=== PATIENT | male | born 1970 | race Caucasian/White ===

== ENCOUNTER 2018-12-29 08:11 | Observation (INO) | payer OTHER ==
[~2018-12-29] VITALS: Ht 182.9 cm; Wt 90.5 kg
[2018-12-29] VITALS (23 sets, daily range): BP systolic 108–135; BP diastolic 55–88; PULSE 54–92; RESP 11–25; Ht 182.9 cm; Wt 90.5 kg
[~2018-12-29 08:11] MED LIST: BUPIVACAINE 0.5%/EPI (SDV) 30 ML INJ ONE; POLYMYXIN/BACITRACIN 1L IRRIG ONE; SURGIFOAM POWDER 1 GM KIT ONE; THROMBIN (BOVINE) 5,000 UNIT VIAL TP ONE
[2018-12-29] MEDS ORDERED: CEFAZOLIN 2 GM/50 ML (PMX) 50 ML IVPB SCH (08:30)
[2018-12-29] MEDS ORDERED: LACTATED RINGER'S 1,000 ML (ENTER RATE) IV* ONE (08:30)
--- NOTE | 2018-12-29 12:00 | HPN ---
Date/Time of Note Date/Time of Note DATE: 12/29/18 TIME: 12:00 Interval H&P Admission Note Pt. seen H&P reviewed: No system changes CORNEL GARCÍA MD Dec 29, 2018 12:00
--- NOTE | 2018-12-29 12:26 | PREAC ---
Date/Time of Note Date/Time of Note DATE: 12/29/18 TIME: 12:25 Anesthesia Eval and Record Evaluation Time Pre-Procedure Interview DATE: 12/29/18 TIME: 12:25 Age 48 Sex male NPO: 8 hrs Preoperative diagnosis lumbar herniated disc Planned procedure L4-L5 microdiscectomy on left Past Medical History Past Medical History: None Surgery & Anesthesia Issues No known issue Meds Anticoagulation: No Beta Lew within 24 hr: No Reason Beta Lew not given: Pt. not on B-Lew No Active Prescriptions or Reported Meds Current Medications Cefazolin Sodium/ Dextrose 50 ml @ 100 mls/hr PREOP IVPB ; Start 12/29/18 at 08:30; Stop 12/29/18 at 19:00 Potassium Chloride/Dextrose/ Sod Cl 1,000 ml @ 100 mls/hr Q10H IV ; Start 12/29/18 at 12:06; Status UNV Acetaminophen/ Hydrocodone Bitart ([place] (10/325)) 1 tab Q4H PRN PO .PAIN 1-5; Start 12/29/18 at 12:30; Status UNV Acetaminophen/ Hydrocodone Bitart ([place] (10/325)) 2 tab Q4H PRN PO .PAIN 6-10; Start 12/29/18 at 12:30; Status UNV Hydromorphone HCl (Dilaudid) 0.2 mg Q1H PRN IV .BREAKTHROUGH PAIN; Start 12/29/18 at 12:30; Status UNV Cefazolin Sodium 50 ml @ 100 mls/hr Q8H IVPB ; Start 12/29/18 at 12:30; Stop 12/30/18 at 04:59; Status UNV Ondansetron HCl (Zofran Inj) 4 mg Q6H PRN IV NAUSEA/VOMITING; Start 12/29/18 at 12:30; Status UNV Bisacodyl (Dulcolax Supp) 10 mg DAILY PRN [place] .CONSTIPATION; Start 12/29/18 at 12:30; Status UNV Docusate Sodium (Colace) 100 mg BID PO ; Start 12/29/18 at 21:00; Status UNV Al Hydrox/Mg Hydrox/Simethicone (Mag-Al Plus) 15 ml Q6H PRN PO .CONSTIPATION/DYSPEPSIA; Start 12/29/18 at 12:30; Status UNV Acetaminophen (Tylenol Tab) 650 mg Q4H PRN PO CHAPPELL OR TEMP GREATER THAN 101.3F; Start 12/29/18 at 12:30; Status UNV Cyclobenzaprine HCl (Flexeril) 10 mg TID PRN PO .MUSCLE SPASMS; Start 12/29/18 at 12:30; Status UNV Phenol (Cepastat Lozenge) 1 lozenge PRN PRN [place] .SORE THROAT; Start 12/29/18 at 12:30; Status UNV Diphenhydramine HCl (Benadryl) 25 mg Q6H PRN PO .ITCHING; Start 12/29/18 at 12:30; Status UNV Diphenhydramine HCl (Benadryl) 25 mg Q6H PRN IV .ITCHING; Start 12/29/18 at 12:30; Status UNV Naloxone HCl (Narcan) 0.2 mg Q2M PRN IV .RR 8 BREATHS/MIN OR LESS; Start 12/29/18 at 12:30; Status UNV Meds reviewed: Yes Allergies Coded Allergies: No Known Allergy (Unverified , 12/28/18) Allergies Reviewed: Yes Labs/Studies Labs Reviewed: Reviewed by anesthesiologist test: N/A Studies: ECG, CXR Pre-procedure Exam Last vitals Vital Signs Date Temp Pulse Resp B/P (MAP) Pulse Ox O2 O2 Flow FiO2 Time Delivery Rate 12/29/18 98.3 60 18 108/68 98 Room Air 09:01 (81) Airway: Adequate mouth opening, Adequate thyromental dist Mallampati: Mallampati II Teeth: Normal Lung: Normal Heart: Normal ASA Physical Status ASA physical status: 1 Emergency: None Planned Anesthetic General/MAC: ETT Planned Pain Management Parenteral pain med Pre-operative Attestations Prior to commencing anesthesia and surgery, the patient was re-evaluated, there was verification of: *The patient's identity *The results of appropriate recent lab work and preoperative vital signs *The above evaluation not changing prior to induction *Anesthetic plan, risk benefits, alternative and complications discussed with patient/family; questions answered; patient/family understands, accepts and wishes to proceed. CORBY AYON MD Dec 29, 2018 12:26
[2018-12-29] MEDS ORDERED: AL HYDROX/MG HYDROX/SIMETH 30 ML CUP PO PRN (12:30)
[2018-12-29] MEDS ORDERED: ACETAMINOPHEN 325 MG TAB PO PRN (12:30)
[2018-12-29] MEDS ORDERED: HYDROmorphONE 0.5 MG/0.5 ML SYG IV PRN (12:30)
[2018-12-29] MEDS ORDERED: LABETALOL HCL 20MG INJ IV PRN (12:30)
[2018-12-29] MEDS ORDERED: OXYCODONE/ACETAMINOPHEN (5/325) TAB PO PRN (12:30)
[2018-12-29] MEDS ORDERED: CEPASTAT LOZENGE MT PRN (12:30)
[2018-12-29] MEDS ORDERED: CYCLOBENZAPRINE 10 MG TAB PO PRN (12:30)
[2018-12-29] MEDS ORDERED: EPHEDrine SULFATE 50 MG/5 ML SYG IV PRN (12:30)
[2018-12-29] MEDS ORDERED: HYDROCODONE/APAP (10/325) TAB PO PRN ×2 (12:30)
[2018-12-29] MEDS ORDERED: BISACODYL 10 MG SUPP PR PRN (12:30)
[2018-12-29] MEDS ORDERED: MEPERIDINE 25 MG INJ IV PRN (12:30)
[2018-12-29] MEDS ORDERED: DIPHENHYDRAMINE 50 MG INJ IV PRN ×2 (12:30)
[2018-12-29] MEDS ORDERED: PROCHLORPERAZINE 10 MG INJ IV PRN (12:30)
[2018-12-29] MEDS ORDERED: hydrALAzine 20 MG INJ IV PRN (12:30)
[2018-12-29] MEDS ORDERED: NALOXONE (0.4 MG/ML) INJ IV PRN (12:30)
[2018-12-29] MEDS ORDERED: HYDROmorphONE 1 MG/5 ML IV SYRINGE IV PRN ×3 (12:30)
[2018-12-29] MEDS ORDERED: FENTAnyl 50 MCG/ML VIAL IV PRN ×3 (12:30)
[2018-12-29] MEDS ORDERED: ONDANSETRON 4 MG INJ IV PRN ×2 (12:30)
[2018-12-29] MEDS ORDERED: DIPHENHYDRAMINE 25 MG CAP PO PRN (12:30)
[2018-12-29] MEDS ORDERED: LIDOCAINE 2% (SDV) 5 ML INJ ONE (12:34)
[2018-12-29] MEDS ORDERED: SUCCINYLCHOLINE CHLORIDE 100 MG/5 ML SYG IV ONE ×2 (12:34→12:43)
[2018-12-29] MEDS ORDERED: PROPOFOL 20 ML ONE (12:34)
[2018-12-29] MEDS ORDERED: MIDAZOLAM 1 MG/ML 2 ML INJ ONE (12:34)
[2018-12-29] MEDS ORDERED: FENTAnyl 50 MCG/ML VIAL ONE (12:34)
[2018-12-29] MEDS ORDERED: ROCURONIUM 50 MG INJ ONE (12:34)
[2018-12-29] MEDS ORDERED: CEFAZOLIN 1 GM INJ ONE (12:49)
[2018-12-29] MEDS ORDERED: CA CHLORIDE 10% 10 ML SYRINGE ONE (13:07)
[2018-12-29] MEDS ORDERED: HEPARIN 1000 UNITS/ML 10 ML INJ ONE (13:08)
[2018-12-29] MEDS ORDERED: ONDANSETRON 4 MG INJ ONE (13:09)
[2018-12-29] MEDS ORDERED: DEXAMETHASONE 4 MG/ML 5 ML INJ ONE (13:09)
[2018-12-29] MEDS ORDERED: FAMOTIDINE 20 MG INJ ONE (13:10)
[2018-12-29] MEDS ORDERED: POLYMYXIN/BACITRACIN 1L IRRIG IRR ONE (13:29)
[2018-12-29] MEDS ORDERED: BUPIVACAINE 0.25% (MPF) 30 ML INJ ONE (13:47)
[2018-12-29] MEDS ORDERED: HYDROmorphONE 2 MG/ML SYG ONE (14:19)
[2018-12-29] MEDS ORDERED: GLYCOPYRROLATE 0.4 MG INJ ONE (14:27)
[2018-12-29] MEDS ORDERED: NEOSTIGMINE 3 MG/3 ML SYRINGE ONE (14:27)
[2018-12-29] MEDS ORDERED: SUGAMMADEX SODIUM 200 MG/2 ML VIAL IV ONE (14:31)
--- NOTE | 2018-12-29 14:42 | SIPON ---
Date/Time of Note Date/Time of Note DATE: 12/29/18 TIME: 14:41 Operative Report Preoperative Diagnosis Left L5-S1 disc herniation Postoperative Diagnosis Left L5-S1 disc herniation Operation/Procedure Performed Left L5-S1 discectomy Surgeon see signature line senior underwriting assistant Oliva Andino Anesthesia: general Estimated blood loss: 10 - 50 ml's Transfusion Required none Specimen Disc Grafts/Implants none Complications none CORNEL GARCÍA MD Dec 29, 2018 14:42
--- NOTE | 2018-12-29 14:58 | OPR ---
DATE OF OPERATION: 12/29/2018 PREOPERATIVE DIAGNOSES: Left L5-S1 disk herniation with radiculopathy and weakness. POSTOPERATIVE DIAGNOSIS: Left L5-S1 disk herniation with radiculopathy and weakness. PROCEDURE: 1. Left L5-S1 lumbar microdiskectomy. 2. Left L5-S1 hemilaminotomy, partial medial facetectomy, foraminotomy. 3. Use of operative microscope. 4. Lateral localizing film x2. 5. Intraoperative neuromonitoring. PRIMARY SURGEON: Simon Ascencio MD VIDEO SOFTWARE ENGINEER: Oliva Andino SA NEED FOR VIDEO SOFTWARE ENGINEER: During this spinal surgical procedure, my benefits assistant was used to retract and protect the spinal nerves and dural sac. My benefits assistant also employed the suction catheters to evacuate blood from the surgical field to improve visualization of the neural structures. The benefits assistant was medically necessary to facilitate the completion of the surgery in a safe and expeditious manner. [facility] [place] regulations, as well as hospital bylaws, preclude the use of non-licensed health care personnel, such as operating room technicians, to perform these functions. FINDINGS: Neuromonitoring at the start of the case revealed left L5 amplitude down 30%, left S1 down 60%, right S1 down 10%. At the end of the case, nerve signals returned to normal. Patient extruded fragment at the L5-S1 level. ESTIMATED BLOOD LOSS: Less than 30 mL. DRAINS: None. SPECIMENS: L5-S1 disk spaces. COMPLICATIONS OF PROCEDURE: None. TYPE OF ANESTHESIA: General. ANESTHESIOLOGIST: Dr. Ynes Rand. INDICATIONS FOR PROCEDURE: A 48-year-old gentleman with left arm radiculopathy in the setting of disk herniation. Developed weakness and therefore is recommended he undergo the above procedure. Preoperatively, we discussed risks, benefits, alternatives. He understood and wished to proceed. DESCRIPTION OF PROCEDURE IN DETAIL: The patient was identified from the holding area, given Ancef antibiotic, taken to the operating room, where he was successfully placed under general anesthesia. Neuromonitoring leads were placed, sequential compressive devices were applied. Remote intraoperative neuromonitoring was performed by Dr. Miles from 12:30 until 02:30, to include SSEP, MEP, and EMG performed by [facility]. Patient was placed on the operative table in prone position over a Carlos frame. All bony prominences were well padded. The back was prepped in usual fashion. I placed spinal needles and took lateral film to confirm the correct levels. Once this was confirmed, I injected Marcaine and epinephrine. Incision was then made over the L5-S1 level. Incision was taken down to dorsal fascia, which was incised with Bovie cautery. I then subperiosteally dissected the L5 and S1 lamina. Sharri retractor was placed. Kerrison was placed in what was felt to be the L5 lamina. Repeat lateral film was obtained to confirm the correct levels. Once this was confirmed, microscope was brought in and a left-sided hemilaminotomy, partial medial facetectomy and foraminotomy were then performed. I then identified the S1 nerve root which my benefits assistant retracted medially. The extrusion was identified beyond the PLL. I extended the PLL opening and removed the extruded fragment. I then entered the disk space and perform a diskectomy. I then spent another 20 minutes above the level of the disk teasing out multiple fragments that had extruded superiorly. Once this was done, all nerve signals returned to normal. I irrigated the wound. I achieved hemostasis. Valsalva was performed and there was no leak of CSF. The wound was dry, and therefore, I did not place a drain. I injected PPP and thrombin over the dura for hemostatic purposes. I then removed the retractors and took the microscope off the field. I injected plain Marcaine. I closed deep fascia with #1 Vicryl stitch. I closed subcutaneous tissue with 2-0 Vicryl stitch. A 4-0 Monocryl closure then performed. Dermabond was then applied. The patient was then awakened from anesthesia and taken to the recovery room in stable condition. Lap, sponge and instrument counts were correct x2. There were no apparent complications during the procedure. The patient will be admitted to the orthopedic artis for routine postoperative care to include pain checks, antibiotics, and physical therapy. Dictated By: SIMON EARL/TOBI Conf#: [id number] DID#: [id number] CC: OLIVA ANDINO;*EndCC* MTDD
--- NOTE | 2018-12-29 15:08 | PAC ---
Date/Time of Note Date/Time of Note DATE: 12/29/18 TIME: 15:07 Post-Anesthesia Notes Post-Anesthesia Note Last documented vital signs Vital Signs Date Temp Pulse Resp B/P (MAP) Pulse Ox O2 O2 Flow FiO2 Time Delivery Rate 12/29/18 97.8 14:53 12/29/18 66 16 116/74 100 Mask 8.0 14:51 (88) Activity: WNL Respiratory function: WNL Cardiovascular function: WNL Mental status: Baseline Pain reasonably controlled: Yes Hydration appropriate: Yes Nausea/Vomiting absent: Yes Comments BP: 109/55 HR: 60 RR: 15 T: 97.8 SaO2: 98% CORBY AYON MD Dec 29, 2018 15:08
[2018-12-29] MEDS: CEFAZOLIN 1 GM/50 ML (PMX) 50 ML IVPB SCH ×2 (15:26→23:19)
[2018-12-29] MEDS: D5W-0.45 NACL + KCL 20 MEQ 1,000 ML IV SCH (16:21)
--- NOTE | 2018-12-29 18:39 | CONS ---
DATE OF ADMISSION: 12/29/2018 DATE OF CONSULTATION: 12/29/2018 TYPE OF CONSULTATION: Postoperative medical. Thank you very much for allowing me to evaluate this 48-year-old male who just underwent lumbar back surgery. HISTORICAL EVENTS: As you well know, this patient began to have symptoms in 06/2018 after lifting so mething heavy and soon following the latter noted pain involving the left lower extremity. Conservat lorna efforts including massage, chiropractic intervention and that provided no significant relief and because of continued throbbing and at times rather sharp pain following your evaluation and MRI az darden, elected to proceed with surgery. Postoperatively, he is reasonably comfortable without cough, wh eezing, shortness of breath, nausea, vomiting, abdominal or chest pain. MEDICATIONS PRIOR TO ADMISSION: Aspirin. ALLERGIES: NONE. PAST SURGICAL HISTORY: None. SOCIAL HISTORY: He is a assistant housekeeping manager, , nonsmoker. PHYSICAL EXAMINATION: GENERAL: [employer] male in no acute distress. VITAL SIGNS: BP 122/80, pulse 70, respirations were 18. He was afebrile. HEENT: Eyes: Extraocular muscles were full. Nose, mouth and throat are normal. NECK: Supple. There was no jugular venous distention, thyroid enlargement or adenopathy. LUNGS: Clear. HEART: Rhythm regular. ABDOMEN: Nontender. Liver and spleen were not palpable. No mass or tenderness were noted. EXTREMITIES: No edema. Calves are tender. NEUROLOGIC: No lateralizing motor weakness. IMPRESSION: 1. Stable postop lumbar back surgery. 2. We will follow with you daily. 3. We will observe for signs and symptoms of thromboembolic disease. Dictated By: BELLA JENNINGS/TOBI Conf#: [id number] DID#: [id number] CC: CORNEL GARCÍA MD;*EndCC*
[2018-12-29] MEDS: DOCUSATE SODIUM 100 MG CAP PO SCH (20:48)
[2018-12-30] MEDS: D5W-0.45 NACL + KCL 20 MEQ 1,000 ML IV SCH (02:01)
[2018-12-30 02:17] VITALS: BP 115/62; PULSE 77; RESP 18
[2018-12-30 07:59] VITALS: BP 107/55; PULSE 66; RESP 17
--- NOTE | 2018-12-30 08:27 | CONS ---
Assessment/Plan Assessment/Plan Assessment/Plan (Daily) 1. Post op lumbar back surgery, doing quite well 2. Labs rev 3. Did not have a cameron and has no diff voiding Consultation Date/Type/Reason Admit Date/Time Dec 29, 2018 at 12:06 Initial Consult Date Date/Time of Note DATE: 12/30/18 TIME: 08:26 Detailed Summary Respiratory: No cough, No shortness of breath Cardiovascular: No chest pain Gastrointestinal: no complaints Genitourinary: no complaints Musculoskeletal: back pain (moderate without lef leg radic pain) Exam/Review of Systems Exam Vitals Vital Signs Date Temp Pulse Resp B/P (MAP) Pulse Ox O2 O2 Flow FiO2 Time Delivery Rate 12/30/18 98.5 66 17 107/55 96 07:59 (72) 12/29/18 Room Air 19:53 12/29/18 3.0 16:15 Intake and Output 12/29/18 12/29/18 12/30/18 1414:59 22:59 06:59 IntakeIntake Total 1400 ml 600 ml 1720 ml OutputOutput Total 10 ml 450 ml 1050 ml BalanceBalance 1390 ml 150 ml 670 ml Neck: No jvd Respiratory: clear to auscultation Cardiovascular: regular rate and rhythm Gastrointestinal: soft Extremities: No edema, No tenderness Results Result Diagram: 12/30/18 0422 12/30/18 0422 Results 24hrs Laboratory Tests Test 12/30/18 04:22 12/30/18 06:58 White Blood Count 12.1 H Red Blood Count 4.54 L Hemoglobin 13.8 L Hematocrit 39.5 L Mean Corpuscular Volume 87.0 Mean Corpuscular Hemoglobin 30.4 Mean Corpuscular Hemoglobin Concent 34.9 Red Cell Distribution Width 12.0 Platelet Count 159 Mean Platelet Volume 11.0 H Immature Granulocytes % 0.200 Neutrophils % 87.0 H Lymphocytes % 6.1 L Monocytes % 6.6 Eosinophils % 0.0 Basophils % 0.1 Nucleated Red Blood Cells % 0.0 Immature Granulocytes # 0.030 Neutrophils # 10.6 H Lymphocytes # 0.7 L Monocytes # 0.8 Eosinophils # 0.0 Basophils # 0.0 Nucleated Red Blood Cells # 0.0 Sodium Level 138 Potassium Level 4.3 Chloride Level 104 Carbon Dioxide Level 27 Anion Gap 7 Blood Urea Nitrogen 13 Creatinine 0.99 Est Glomerular Filtrat Rate mL/min > 60 Glucose Level 156 Calcium Level 9.1 Magnesium Level 1.9 Lab Scanned Report REFERENCE LAB Medications Medication Current Medications Potassium Chloride/Dextrose/ Sod Cl 1,000 ml @ 100 mls/hr Q10H IV Last administered on 12/30/18at 02:01; Admin Dose 100 MLS/HR; Start 12/29/18 at 14:30 Acetaminophen/ Hydrocodone Bitart ([place] (10325)) 1 tab Q4H PRN PO .PAIN 1-5; Start 12/29/18 at 12:30 Acetaminophen/ Hydrocodone Bitart ([place] (10/325)) 2 tab Q4H PRN PO .PAIN 6-10; Start 12/29/18 at 12:30 Hydromorphone HCl (Dilaudid) 0.2 mg Q1H PRN IV .BREAKTHROUGH PAIN; Start 12/29/18 at 12:30 Ondansetron HCl (Zofran Inj) 4 mg Q6H PRN IV NAUSEA/VOMITING; Start 12/29/18 at 12:30 Bisacodyl (Dulcolax Supp) 10 mg DAILY PRN [place] .CONSTIPATION; Start 12/29/18 at 12:30 Docusate Sodium (Colace) 100 mg BID PO ; Start 12/29/18 at 21:00 Al Hydrox/Mg Hydrox/Simethicone (Mag-Al Plus) 15 ml Q6H PRN PO .CONSTIPATION/DYSPEPSIA; Start 12/29/18 at 12:30 Acetaminophen (Tylenol Tab) 650 mg Q4H PRN PO CHAPPELL OR TEMP GREATER THAN 101.3F; Start 12/29/18 at 12:30 Cyclobenzaprine HCl (Flexeril) 10 mg TID PRN PO .MUSCLE SPASMS; Start 12/29/18 at 12:30 Phenol (Cepastat Lozenge) 1 lozenge PRN PRN [place] .SORE THROAT; Start 12/29/18 at 12:30 Diphenhydramine HCl (Benadryl) 25 mg Q6H PRN PO .ITCHING; Start 12/29/18 at 12:30 Diphenhydramine HCl (Benadryl) 25 mg Q6H PRN IV .ITCHING; Start 12/29/18 at 12:30 Naloxone HCl (Narcan) 0.2 mg Q2M PRN IV .RR 8 BREATHS/MIN OR LESS; Start 12/29/18 at 12:30 BELLA GONZALES MD Dec 30, 2018 08:27
[2018-12-30] MEDS: CEFAZOLIN 1 GM/50 ML (PMX) 50 ML IVPB SCH (09:14)
[2018-12-30] MEDS: DOCUSATE SODIUM 100 MG CAP PO SCH (09:14)
--- NOTE | 2018-12-30 12:17 | DS ---
Date/Time of Note Date/Time of Note DATE: 12/30/18 TIME: 12:16 Discharge Summary Admission/Discharge Info Admit Date/Time Dec 29, 2018 at 12:06 Discharge Date/Time december 30 Discharge Diagnosis lumbar hnp Patient Condition: Good Procedures lumbar discectomy Hospital Course patient was admitted to the ortho artis after undergoing a lumbar dicectomy. his post op course was uncomplicated. by post op day 1 he was deemed stable for d/c with f/u arranged with the undersigned. Home Meds No Active Prescriptions or Reported Meds Primary Care Provider Not On Staff Doctor Pending Labs Laboratory Tests Test 12/30/18 04:22 12/30/18 06:58 White Blood Count 12.1 10^3/ul (4.8-10.8) Red Blood Count 4.54 10^6/ul (4.70-6.10) Hemoglobin 13.8 g/dl (14.0-18.0) Hematocrit 39.5 % (42.0-52.0) Mean Corpuscular Volume 87.0 fl (82.0-101.0) Mean Corpuscular Hemoglobin 30.4 pg (29.0-33.0) Mean Corpuscular 34.9 g/dl (32.0-37.0) Hemoglobin Concent Red Cell Distribution Width 12.0 % (11.5-14.5) Platelet Count 159 10^3/UL (140-415) Mean Platelet Volume 11.0 fl (7.4-10.4) Immature Granulocytes % 0.200 % (0.001-0.429) Neutrophils % 87.0 % (39.0-77.0) Lymphocytes % 6.1 % (15.0-51.0) Monocytes % 6.6 % (0.0-11.0) Eosinophils % 0.0 % (0.0-7.0) Basophils % 0.1 % (0.0-2.0) Nucleated Red Blood Cells % 0.0 /100WBC (0.0-0.0) Immature Granulocytes # 0.030 10^3/ul (0.0-0.031) Neutrophils # 10.6 10^3/ul (1.6-7.5) Lymphocytes # 0.7 10^3/ul (0.8-2.9) Monocytes # 0.8 10^3/ul (0.3-0.9) Eosinophils # 0.0 10^3/ul (0.0-0.5) Basophils # 0.0 10^3/ul (0.0-0.1) Nucleated Red Blood Cells # 0.0 10^3/ul (0.0-0.0) Sodium Level 138 mmol/L (135-144) Potassium Level 4.3 mmol/L (3.5-5.1) Chloride Level 104 mmol/L (97-110) Carbon Dioxide Level 27 mmol/L (21-31) Anion Gap 7 (5-13) Blood Urea Nitrogen 13 mg/dl (7-20) Creatinine 0.99 mg/dl (0.61-1.24) Est Glomerular Filtrat > 60 mL/min (>60) Rate mL/min Glucose Level 156 mg/dl (70-220) Calcium Level 9.1 mg/dl (8.4-10.2) Magnesium Level 1.9 mg/dl (1.7-2.5) Lab Scanned Report REFERENCE LAB [id number] CORNEL GARCÍA MD Dec 30, 2018 12:17
== END 2018-12-30 14:05 | disposition home or self-care (01) ==
LOC: SDS 08:11 → EDSTATUS 11:30 → SDS 12:05 → INTOOBSV 12:06 → REC 12:06 → MS1 16:15
PROVIDERS: ADMIT Specialist; ATTEND Specialist
DX: M51.17 Intervertebral disc disorders with radiculopathy, lumbosacral region (principal); R53.1 Weakness
CPT/HCPCS: 63030; 72020; 80048; 83735; 85025; 86999; 88304; 97116; 97162; 97530; 99217; G0378; J0690; J1100; J1170; J1200; J1644; J2175; J2250; J2405; J2710; J3010; J3480